=== PATIENT | female | born 1995 | race Hispanic/Latino ===

== ENCOUNTER 2022-11-28 20:12 | Emergency (ER) | payer BC, MEDICAID ==
[2022-11-28 20:43] VITALS: BP 140/89; PULSE 110; RESP 24; O2SAT 98
[2022-11-28] MEDS ORDERED: KETOROLAC 60 MG VIAL (30MG/ML) IM ONE (21:00)
[2022-11-28] MEDS ORDERED: ORPHENADRINE CITRATE 30 MG/ML ML IM ONE (21:00)
[2022-11-28] MEDS ORDERED: DEXAMETHASONE SOD PHOSPHATE 4 MG/ML 1ML VIAL IM ONE (21:00)
[2022-11-28] MEDS ORDERED: CYCL-309 PO (22:27)
== END 2022-11-28 23:06 | disposition home or self-care (01) ==
LOC: EDH 20:12
DX: M54.16 Radiculopathy, lumbar region (principal)
CPT/HCPCS: 99284; 96372 ×3; J1100; J1885; J2360